=== PATIENT | male | born 1995 | race Caucasian/White ===

== ENCOUNTER 2022-07-17 22:53 | Emergency (ER) | payer OTHER ==
[~2022-07-17] VITALS: Ht 175.3 cm; Wt 110.0 kg
[2022-07-17 23:15] VITALS: BP 165/106
== END 2022-07-18 02:01 | disposition home or self-care (01) ==
LOC: ER 22:53
DX: H81.13 Benign paroxysmal vertigo, bilateral (principal); J32.9 Chronic sinusitis, unspecified